=== PATIENT | male | born 1965 | race Caucasian/White ===

== ENCOUNTER 2023-05-11 07:21 | Emergency (ER) | payer OTHER, SELFPAY ==
[2023-05-11 07:31] VITALS: BP 131/77
[2023-05-11 07:55] VITALS: BP 126/82
[2023-05-11 07:59] VITALS: BMI 27.2
[2023-05-11 08:00] VITALS: BP 113/77
--- NOTE | 2023-05-11 08:17 | ED.GENMED ---
History of Present Illness
General
Chief Complaint: Chest Pain
Source: patient and spouse
Exam Limitations: none
Time Seen by Provider: 05/11/23 08:05
Nursing documentation reviewed up to this point in time: agreed with
Travel History
Have you had any contact with someone who has COVID-19?: No
Do you have any symptoms of coronavirus? Fever > 100 degrees, chills, cough, shortness of breath, sore throat, loss of taste or smell, muscle aches, or headache?: No
History of Present Illness
History of Present Illness:
58-year-old male presents to the emergency department complaining of chest pain that started yesterday afternoon. He describes his left shoulder. He took a baby aspirin this morning and now denies any symptoms.
Past History
Past History
ED Past Medical History: Arrthythmia (a fib s/p ablation) and Other (Schatzki's ring, osteoarthritis, BPH)
ED Past Surgical History: Cardiac (ablation) and Other (Hernia repair, esophageal dilatation)
Social History
Tobacco: Non-smoker
Alcohol: Occasional
Drug: None
Personal:
Living: with family
Employment: Employed
Family History
Family History: Hypertension
Review of Systems
Review of Systems
Allergies reviewed?: Yes
All Other Systems: Not applicable
Constitutional: Reports no symptoms
EENT: Reports no symptoms
Respiratory: Reports no symptoms
Cardiac: Reports chest pain
ABD/GI: Reports no symptoms
: Reports no symptoms
Musculoskeletal: Reports no symptoms
Skin: Reports no symptoms
Neurological: Reports no symptoms
Endocrine: Reports no symptoms
Hematologic/Lymphatic: Reports no symptoms
Psychiatric: Reports no symptoms
Phy Exam
Physical Exam
Physical Exam:
Physical Exam
General: no apparent distress, not acutely ill
Neck: supple. no meningeal signs. normal posterior pharynx
Heart: s1/s2 regular rate and rhythm, no murmur. equal radial
pulses.
HEENT: Pupils equal round reactive to light, EOMI
Lungs: no acute respiratory distress. clear bilaterally
Abdomen: normal bowel sounds. not tender. no CVAT
Neuro: alert and oriented. no focal neurological deficits cranial nerves II through XII intact
Skin: no rash
Psychiatric: well kept. interactive and cooperative
Extremities: no edema. no calf tenderness. negative homans. good distal pulses
Scores
Heart Score for Chest Pain Patients
STEMI patient?: No
History: Slightly or Non-Suspicious
ECG: Normal
Age: >45 - <65 years
Risk Factors: 1 or 2 Risk Factors
Troponin: </= Normal Limit
Heart Score for Chest Pain Patients: 2
Heart Score Risk: 2.5% MACE over next 6 weeks
Course
Orders/Labs/Results
Orders:
Orders
05/11/23 07:22
ECG [Electrocardiogram (*1)] Urgent
Reason for Study: Chest Pain
EKG- Treatment ONCE
05/11/23 08:06
IV Insert/Care/Rem.- Treatment PRN
Pulse Ox/cont/shift [RESP] Stat
Quantity: 1
05/11/23 08:07
Cardiac Monitoring- Treatment ONCE
05/11/23 08:14
Complete Blood Count/With Diff Urgent
Comprehensive Metabolic Panel Urgent
Troponin I Urgent
Abnormal Lab Results
05/11/23
08:14
RBC 4.50 L 10^6/uL
(4.70-6.10)
MCH 32.7 H pg
(27.0-31.0)
Glucose 149 H mg/dl
(70-99)
Alkaline Phosphatase 34 L U/L
(38-126)
Total Protein 6.2 L g/dl
(6.3-8.2)
05/11/23 08:14
05/11/23 08:14
Vital Signs
Initial and Last Documented VS:
Initial Vital Signs
Pulse Resp BP Pulse Ox
62 18 131/77 99
05/11/23 07:31 05/11/23 07:31 05/11/23 07:31 05/11/23 07:31
Last Documented Vital Signs
Pulse Resp BP Pulse Ox
58 14 108/73 95
05/11/23 10:00 05/11/23 10:00 05/11/23 10:00 05/11/23 10:00
MDM/Problems Addressed
Differential Diagnosis Includes:
ACS, PE
MDM/Problems Addressed:
58-year-old male with chest pain, unclear etiology. Normal EKG and troponin. Will discharge patient to follow-up with cardiology.
Chronic conditions affecting care: Arrhythmia (Atrial fibrillation)
Acute Exacerbation and/or Progression of Chronic Illness: Arrhythmia
*Pulse Oximetry
Patient hypoxic: no
*EKG
Interpreted by ED Provider?: Yes
EKG Intrepretation Date: 05/11/23
EKG Intrepretation Time: 07:28
Interpretation: abnormal
Comparison EKG: no changes
Heart Rate: 57
Rate: bradycardiac
Rhythm: sinus
[place]: left axis deviation
Interval: normal interval
QRS Pattern: normal QRS
Ischemia: no ischemia
*Graphotype Operator Interpretation
Rate: normal
Interpretation: normal
Heart Rate: 60
Rhythm: sinus
*Critical Care Note
Total Time (30-74mins, 75-104mins- exclusive of procedures): Not Applicable
Data Reviewed
Further Testing Considered But Not Given:
CT chest considered, but not indicated
Patient Management
Social determinants of health affecting care: Living situation and Strong social support
Escalation/DeEscalation of care consider admission/obs:
Admit not indicated
ED Attending Note
-
Portions of this chart may have been created with voice recognition software.� Occasional wrong word or��sound alike� substitutions may have occurred due to the inherent limitations of voice recognition software.
Discharge Plan
Departure
Patient Disposition: Home (Routine Discharge)
Date of Disposition: 05/11/23
Time of Disposition: 10:59
Patient with high blood pressure during this ER visit?: Yes
Condition: Good
Discharge Problem:
Chest pain
Instructions: Chest Pain DCA Follow Up, BLOOD PRESSURE
Prescriptions:
No Action
diazepam 5 MG tablet
5 mg PO TIDPRN PRN (Reason: back pain ) Qty: 12 0RF
pantoprazole [Protonix] 40 mg tablet,delayed release (DR/EC)
40 mg PO DAILY Qty: 20 0RF
Referrals:
Carlos Bailon DO [Family Provider] -
Interventions
Interventions:
*Risk Screen - Suicide Last Done: 05/11/23 07:31
*General Assessment Last Done: 05/11/23 07:31
*Neglect/Abuse Screening Last Done: 05/11/23 07:31
ED- Fall Risk Assessment Last Done: 05/11/23 07:59
*ED COVID-19 Vaccine History Last Done: 05/11/23 07:59
ED- Cardiac Assessment Last Done: 05/11/23 07:59
[2023-05-11 08:32] LABS: % Basophils 0.6 % (0-2); % Eosinophils 2.2 % (0-6); % Immature Granulocytes 0.2 % (0-0.5); % Monocytes 7.6 % (1.7-9.3); % Neutrophils 66.4 % (42.2-75.2); Absolute Eosinophils 0.1 10^3/uL (0-0.7); Absolute Lymphocytes 1.2 10^3/uL (1.2-3.4); Absolute Monocytes 0.4 10^3/uL (0.1-0.6); Absolute Neutrophils 3.3 10^3/uL (1.4-6.5); Hematocrit 41.4 % (39.0-52.0); Hemoglobin 14.7 g/dL (13.0-18.0); Mean Corp Hgb Conc. 35.5 g/dL (33.0-37.0); Mean Corpuscular Hgb 32.7 pg (27.0-31.0); Nucleated Red Blood Cells % 0 % (-); Platelet Count 202 10^3/uL (130-400); Red Cell Dist. Width 12.6 % (11.5-14.5)
[2023-05-11 08:40] LABS: ALT (SGPT) 31 U/L (0-50); AST (SGOT) 30 U/L (17-59); Albumin 3.9 g/dl (3.5-5.0); Alkaline Phosphatase 34 U/L (38-126); Blood Urea Nitrogen 12 mg/dl (9-20); Calcium 9.4 mg/dl (8.4-10.2); Carbon Dioxide 25 mmol/L (22-30); Chloride 107 mmol/L (98-107); Estimated Creatinine Clearance 109 ml/min; Glucose 149 mg/dl (70-99); Potassium 3.9 mmol/L (3.5-5.1); Sodium 139 mmol/L (135-145); Total Bilirubin 0.8 mg/dl (0.2-1.3); Total Protein 6.2 g/dl (6.3-8.2); eGFR > 60.00
[2023-05-11 08:52] LABS: Troponin I < 0.012 ng/ml
[2023-05-11 09:00] VITALS: BP 111/74
[2023-05-11 10:00] VITALS: BP 108/73
[2023-05-11 11:00] VITALS: BP 118/74
== END 2023-05-11 11:12 | disposition home or self-care (01) ==
LOC: EMR 07:21
PROVIDERS: EMERGENCY PHYSICIAN Emergency Medicine; FAMILY PHYSICIAN Family Medicine
DX: R07.89 Other chest pain (principal); I48.91 Unspecified atrial fibrillation; K22.2 Esophageal obstruction; M19.90 Unspecified osteoarthritis, unspecified site; N40.0 Benign prostatic hyperplasia without lower urinary tract symptoms; Z82.49 Family history of ischemic heart disease and other diseases of the circulatory system
CPT/HCPCS: 99283; 80053; 84484; 85025; 93005

== ENCOUNTER → 2023-05-12 13:46 | Outpatient (REF) | payer OTHER, SELFPAY | LOC: RAD 13:46 | PROVIDERS: ATTENDING PHYSICIAN Physician Assistant Medical; FAMILY PHYSICIAN Family Medicine | DX: K21.9 Gastro-esophageal reflux disease without esophagitis (principal); R07.2 Precordial pain | CPT/HCPCS: 71046 ==

== ENCOUNTER → 2023-07-09 06:36 | Day surgery (SDC) | payer OTHER, SELFPAY | LOC: GI 06:36 | PROVIDERS: ATTENDING PHYSICIAN Internal Medicine Gastroenterology; FAMILY PHYSICIAN Family Medicine | DX: R10.13 Epigastric pain (principal); K22.2 Esophageal obstruction; R13.10 Dysphagia, unspecified; K31.89 Other diseases of stomach and duodenum | CPT/HCPCS: 43249; 43239; 88305; 88342 ==

== ENCOUNTER 2024-02-09 20:59 | Observation (INO) | payer OTHER, SELFPAY ==
[2024-02-09] VITALS (8 sets, daily range): BP systolic 110–133; BP diastolic 71–89; BMI 27.5
[2024-02-09 15:57] LABS: % Basophils 0.3 % (0-2); % Eosinophils 2.2 % (0-6); % Immature Granulocytes 0.5 % (0-0.5); % Lymphocytes 14.4 % (20.5-51.1); % Monocytes 7.3 % (1.7-9.3); % Neutrophils 75.3 % (42.2-75.2); Absolute Eosinophils 0.1 10^3/uL (0-0.7); Absolute Lymphocytes 0.9 10^3/uL (1.2-3.4); Absolute Monocytes 0.5 10^3/uL (0.1-0.6); Absolute Neutrophils 4.8 10^3/uL (1.4-6.5); Hematocrit 39.4 % (39.0-52.0); Hemoglobin 13.2 g/dL (13.0-18.0); Mean Corp Hgb Conc. 33.5 g/dL (33.0-37.0); Mean Corpuscular Hgb 31.9 pg (27.0-31.0); Mean Corpuscular Volume 95.2 fL (80.0-94.0); Mean Platelet Volume 9.5 fL (7.4-10.4); Nucleated Red Blood Cells % 0 % (-); Platelet Count 316 10^3/uL (130-400); Red Blood Cell Count 4.14 10^6/uL (4.70-6.10); Red Cell Dist. Width 12.1 % (11.5-14.5); White Blood Cell Count 6.3 10^3/uL (4.8-10.8)
[2024-02-09 16:16] LABS: ALT (SGPT) 23 U/L (0-50); AST (SGOT) 22 U/L (17-59); Albumin 3.8 g/dl (3.5-5.0); Alkaline Phosphatase 32 U/L (38-126); Blood Urea Nitrogen 14 mg/dl (9-20); Calcium 9.1 mg/dl (8.4-10.2); Carbon Dioxide 24 mmol/L (22-30); Chloride 101 mmol/L (98-107); Glucose 102 mg/dl (70-99); Potassium 4.3 mmol/L (3.5-5.1); Sodium 135 mmol/L (135-145); Total Bilirubin 1.3 mg/dl (0.2-1.3); Total Protein 6.4 g/dl (6.3-8.2); eGFR > 60.00
[2024-02-09 16:23] LABS: APTT 34.2 Sec (23.4-35.0); INR 0.96; PT 13.3 Sec (11.4-14.6)
--- NOTE | 2024-02-09 18:45 | ED.GENMED ---
History of Present Illness
<Edita Jensen MD, Resident - Last Filed: 02/09/24 21:55>
General
Chief Complaint: Abdominal Symptoms
Time Seen by Provider: 02/09/24 18:15
History of Present Illness
History of Present Illness:
58-year-old male with past medical history of Schatzki's ring, GERD, Afib status post ablation, BPH presenting to the ED with vomiting and dark stools. Patient notes he had a right knee replacement about 2 weeks ago. Patient reports having URI
symptoms and had an appointment with his PCP who prescribed cefdinir. Last night at 10 PM patient took cefdinir, oxycodone, tadalafil, finasteride, senna at the same time. After taking these pills, felt nauseous and had 3 episodes of vomiting.
Patient states he noticed bright red blood in his vomit. Patient notes he had clear loose stools last night. Since this morning, he has had dark stools (black) x 4. Patient was told by his GI physician to come to the ED. Also notes taking Pepto last
night after his symptoms started. Patient notes epigastric pain last night, denies any abdominal pain at this time. Patient notes he had breakfast this morning and is not feeling hungry which is unusual for him. Denies fever, lightheadedness, SOB.
Patient takes ASA 325 after his knee surgery, did not take today.
Past History
<Edita Jensen MD, Resident - Last Filed: 02/09/24 21:55>
Past History
ED Past Medical History: Arrthythmia (a fib s/p ablation), GERD and Other (Schatzki's ring, osteoarthritis, BPH)
ED Past Surgical History: Cardiac (ablation) and Other (Hernia repair, esophageal dilatation)
Social History
Tobacco: Non-smoker
Alcohol: Occasional
Drug: None
Personal:
Living: with family
Employment: Employed
Family History
Family History: Hypertension
Review of Systems
<Edita Jensen MD, Resident - Last Filed: 02/09/24 21:55>
Review of Systems
Constitutional: Reports sleep disturbance
EENT: Reports no symptoms
Respiratory: Reports cough
Cardiac: Reports no symptoms
ABD/GI: Reports nausea, vomiting and black stools
: Reports no symptoms
Musculoskeletal: Reports no symptoms
Skin: Reports no symptoms
Neurological: Reports no symptoms
Endocrine: Reports no symptoms
Hematologic/Lymphatic: Reports no symptoms
Psychiatric: Reports no symptoms
Phy Exam
<Edita Jensen MD, Resident - Last Filed: 02/09/24 21:55>
Physical Exam
Physical Exam:
GENERAL: Alert, awake, in no apparent distress.
EYE: pupils equal and reactive
NECK: Supple, no significant adenopathy.
ENT: o/p clr, mmm.
CARDIAC: Regular rate and rhythm.
LUNGS: Clear breath sounds bilaterally, no acute respiratory distress, no wheezes/rales/rhonchi
ABDOMEN: Soft, mild epigastric tenderness, no r/g, no cvat. Rectal exam black stool.
NEUROLOGICAL: Alert and oriented, no focal neuro deficits.
SKIN: Warm and dry, skin intact.
MUSCULOSKELETAL: No edema, well perfused.
PSYCH: Normal and appropriate interaction.
Course
<Edita Jensen MD, Resident - Last Filed: 02/09/24 21:55>
Orders/Labs/Results
Orders:
Orders
02/09/24 15:41
Type+Screen Urgent
Complete Blood Count/With Diff Urgent
Comprehensive Metabolic Panel Urgent
PTT Urgent
Prothrombin Time Urgent
02/09/24 18:49
MethylPREDNISolone. [Solu-Medrol] 1,000 mg 0.9% Sodium Chloride 250 ml [Nss] 250 ml IV ONCE
02/09/24 19:15
Pantoprazole [Protonix IV] 80 mg IV NOW STA
02/09/24 19:29
Pantoprazole 80 mg/100 ml Nss [Protonix] 80 mg in 100 ml IV NOW
CR Chest - 2 Views Urgent
Comment:
Reason For Exam: cough
02/09/24 20:29
Admit/Transfer Patient As Directed
Co-Sign Provider:
Level of Care: Observation services
Assign to:: Medical/Surgical
Physician / Group: Mely Granda
Diagnosis: GI Bleed
Reason for Hospitalization: GI Bleed
PRN Pain Medication Management As Directed
May give lesser potent ordered pain med per pt: Yes
preference::
Protocol:: Medication orders for pain may be administered in a
manner that supports deferring to patient preference
when the pt is:
- Requesting an ordered lesser potent pain medication.
Least to most potent pain medications are defined
as: acetaminophen < NSAID < tramadol < opioids
(morphine, oxycodone, hydromorphone).
- Requesting a lesser dose of the same medication IF
ORDERED.
- Requesting a less intrusive route of administration
if both routes are prescribed by the provider (PO <
IV).
02/09/24 20:31
Code Status As Directed
Resuscitation Status: Full Code
02/09/24 21:03
COVID-19 Antigen Urgent
Source: Nasal Swab
Influenza A+B Rapid Molecular Urgent
ROSANGELA Source: Nasal Swab
Specimen Description:
Abnormal Lab Results
02/09/24
15:41
RBC 4.14 L 10^6/uL
(4.70-6.10)
MCV 95.2 H fL
(80.0-94.0)
MCH 31.9 H pg
(27.0-31.0)
Absolute Lymphs (auto) 0.9 L 10^3/uL
(1.2-3.4)
Neutrophils % 75.3 H %
(42.2-75.2)
Lymphocytes % 14.4 L %
(20.5-51.1)
Glucose 102 H mg/dl
(70-99)
Alkaline Phosphatase 32 L U/L
(38-126)
02/09/24 15:41
02/09/24 15:41
Vital Signs
Initial and Last Documented VS:
Initial Vital Signs
Temp Pulse Resp BP Pulse Ox
98.1 F 92 23 117/72 100
02/09/24 15:28 02/09/24 15:28 02/09/24 15:28 02/09/24 15:28 02/09/24 15:28
Last Documented Vital Signs
Temp Pulse Resp BP Pulse Ox
98.1 F 75 17 133/89 96
02/09/24 15:28 02/09/24 21:15 02/09/24 21:15 02/09/24 21:00 02/09/24 21:15
<Vicki Lawrence, DO - Last Filed: 02/09/24 19:46>
Orders/Labs/Results
Orders:
Orders
02/09/24 15:41
Type+Screen Urgent
Complete Blood Count/With Diff Urgent
Comprehensive Metabolic Panel Urgent
PTT Urgent
Prothrombin Time Urgent
02/09/24 18:49
MethylPREDNISolone. [Solu-Medrol] 1,000 mg 0.9% Sodium Chloride 250 ml [Nss] 250 ml IV ONCE
02/09/24 19:15
Pantoprazole [Protonix IV] 80 mg IV NOW STA
02/09/24 19:29
Pantoprazole 80 mg/100 ml Nss [Protonix] 80 mg in 100 ml IV NOW
CR Chest - 2 Views Urgent
Comment:
Reason For Exam: cough
02/09/24 20:29
Admit/Transfer Patient As Directed
Co-Sign Provider:
Level of Care: Observation services
Assign to:: Medical/Surgical
Physician / Group: Mely Granda
Diagnosis: GI Bleed
Reason for Hospitalization: GI Bleed
PRN Pain Medication Management As Directed
May give lesser potent ordered pain med per pt: Yes
preference::
Protocol:: Medication orders for pain may be administered in a
manner that supports deferring to patient preference
when the pt is:
- Requesting an ordered lesser potent pain medication.
Least to most potent pain medications are defined
as: acetaminophen < NSAID < tramadol < opioids
(morphine, oxycodone, hydromorphone).
- Requesting a lesser dose of the same medication IF
ORDERED.
- Requesting a less intrusive route of administration
if both routes are prescribed by the provider (PO <
IV).
02/09/24 20:31
Code Status As Directed
Resuscitation Status: Full Code
02/09/24 21:03
COVID-19 Antigen Urgent
Source: Nasal Swab
Influenza A+B Rapid Molecular Urgent
ROSANGELA Source: Nasal Swab
Specimen Description:
Abnormal Lab Results
02/09/24
15:41
RBC 4.14 L 10^6/uL
(4.70-6.10)
MCV 95.2 H fL
(80.0-94.0)
MCH 31.9 H pg
(27.0-31.0)
Absolute Lymphs (auto) 0.9 L 10^3/uL
(1.2-3.4)
Neutrophils % 75.3 H %
(42.2-75.2)
Lymphocytes % 14.4 L %
(20.5-51.1)
Glucose 102 H mg/dl
(70-99)
Alkaline Phosphatase 32 L U/L
(38-126)
02/09/24 15:41
02/09/24 15:41
Vital Signs
Initial and Last Documented VS:
Initial Vital Signs
Temp Pulse Resp BP Pulse Ox
98.1 F 92 23 117/72 100
02/09/24 15:28 02/09/24 15:28 02/09/24 15:28 02/09/24 15:28 02/09/24 15:28
Last Documented Vital Signs
Temp Pulse Resp BP Pulse Ox
98.1 F 75 17 133/89 96
02/09/24 15:28 02/09/24 21:15 02/09/24 21:15 02/09/24 21:00 02/09/24 21:15
<Edita Jensen MD, Resident - Last Filed: 02/09/24 21:55>
MDM/Problems Addressed
Differential Diagnosis Includes:
Upper GI bleeding
MDM/Problems Addressed:
- CBC, CMP
- Type and Screen
- Protonix
- PTT, INR
<Edita Jensen MD, Resident - Last Filed: 02/09/24 21:55>
*Critical Care Note
Total Time (30-74mins, 75-104mins- exclusive of procedures): Not Applicable
ED Attending Note
<Edita Jensen MD, Resident - Last Filed: 02/09/24 21:55>
-
Portions of this chart may have been created with voice recognition software.� Occasional wrong word or��sound alike� substitutions may have occurred due to the inherent limitations of voice recognition software.
<Vicki Lawrence DO - Last Filed: 02/09/24 19:46>
ED Attending Note
Patient seen and examined by attending physician: Yes
I performed the substantive portion of visit, reviewed & personally made and approve the management plan that is documented in note by myself or ANGELICA.: Yes
I performed a history and physical exam of patient and discussed management with resident, I reviewed resident's note and agree with documented findings and plan of care.: Yes
ED Attending Note:
58-year-old male with history of GERD, Schatzki's ring, A-fib not currently on any anticoagulation presenting to the emergency department with concern of GI bleed. Patient reports about 6 weeks ago he had a right knee replacement by orthopedics.
He reports that there was some complication with bleeding, however has since resolved. He has been taking extra. He also notes that he has been taking Tylenol and ibuprofen. He reports a few days ago he started to have cough and upper respiratory
symptoms, called his primary care doctor and was prescribed cefdinir. Last evening he took his cefdinir, senna, oxycodone, finasteride, tadalafil and subsequently felt very nauseous, followed by 3 episodes of vomiting, reports blood in his vomit,
bright red. Does report social history of alcohol, however denies daily alcohol abuse. Following the vomiting, had several episodes of diarrhea, reportedly black in color. Denies any history of GI bleed. Reports the diarrhea is ongoing, however
has had no further episodes of vomiting since last evening. Denies abdominal pain.
On exam, patient is resting comfortably, no acute distress. He is afebrile, nontoxic. Unremarkable cardiac, pulmonary, abdominal exam, no tenderness. On examination of the right knee, incision appears clean/dry/intact, no significant swelling
erythema to the knee joint. No significant warmth to palpation. Rectal exam performed by resident physician, noted to be melanotic stool, Hemoccult positive. This time concern for upper GI bleed, possibly related to bleeding ulcer in the setting
of ibuprofen usage. Patient laboratory analysis obtained, normal hemoglobin, remains medically stable. However, given persistence of symptoms, feel warrants observation admission for GI consultation and hemodynamic monitoring.
Discharge Plan
Departure
Patient Disposition: Admit
Date of Disposition: 02/09/24
Time of Disposition: 19:31
Admit to doctor: William
Presentation/result/management discussed w/ accepting MD/DO: Hospitalist
Patient with high blood pressure during this ER visit?: No
Condition: Good
Discharge Problem:
GI bleeding
Interventions
Interventions:
*Risk Screen - Suicide Last Done: 02/09/24 15:28
*General Assessment Last Done: 02/09/24 15:28
*Neglect/Abuse Screening Last Done: 02/09/24 15:28
*ED COVID-19 Vaccine History Last Done: 02/09/24 19:28
PT-Vbmyac-Illxkfgzsm Assessment Last Done: 02/09/24 18:00
[2024-02-09] MEDS: PROTONIX IV 80 MG IV (19:25)
--- NOTE | 2024-02-09 19:43 | HPS.HSE ---
Family Physician
-
Family Physician: Carlos Bailon
Chief Complaint
-
nausea/vomiting
History of Present Illness
Patient is a 58-year-old male with past medical history significant for Schatzki's ring dilated 3 times, paroxysmal atrial fibrillation with ablation and benign prostatic hyperplasia who presented to [facility] ED for evaluation of multiple episodes
of nausea and vomiting with diarrhea in last 24-hours. Patient states 2 weeks ago he had a right total knee and shortly after had symptoms or URI, where his doctor prescribed cefdinir. Patient took second dose of cefdinir with oxycodone, tadalafil,
finasteride and senna after eating dinner, a short time later he had sensation that he was going to have an episode of the runs, which turned out to be emesis that is described as having bright red in it. Patient states that he then had
approximately 5 episodes of diarrhea and then a small bowel movement of small formed black stool. Patient states for dinner he ate Gisele, green beans then a large bowl of cherries. Patient states he has had recent fevers on and off for 5 days,
cough and some shortness of breath. He denies any chest pain, palpitations, constipation or urinary symptoms.
Medical History
Past Medical History
Past Medical History: Reports Other
Additional Past Medical History:
Schatzki's ring dilated 3 times
paroxysmal atrial fibrillation with ablation (2017)
benign prostatic hyperplasia
Past Surgical History: Reports Other
Additional Past Surgical History:
bilateral total knee
hernia repair
cardiac ablation (2017)
Social History
Tobacco: Former Smoker (16 pack year history)
Alcohol: None
Drug: None
Personal:
Living: With Family
Employment: Employed
Family History
Family History: Not pertinent
Allergies / Home Medications
Allergies reflects when Allergies were last updated in [facility].
Home Medications with original date entered in [facility]
Allergy/Medication List:
Allergies
Allergy/AdvReac Type Severity Reaction Status Date / Time
rivaroxaban [From Xarelto] Allergy Rash Verified 05/11/23 07:31
Home Medications
pantoprazole 40 mg tablet,delayed release (Protonix) 40 mg PO DAILY #20 tabs 08/03/22
alprazolam 0.5 mg tablet (Xanax) 0.75 mg PO HS 02/09/24
aspirin 325 mg tablet 325 mg PO DAILY 02/09/24
cefdinir 300 mg capsule 300 mg PO BID 02/09/24
doxazosin 4 mg tablet 4 mg PO HS 02/09/24
finasteride 5 mg tablet 5 mg PO HS 02/09/24
oxycodone 5 mg tablet 5 mg PO Q4H 02/09/24
sennosides 8.6 mg tablet (senna) 17.2 mg PO HS 02/09/24
tadalafil 5 mg tablet 5 mg PO HS 02/09/24
testosterone 2 pump topical DAILY 02/09/24
therapeutic multivitamin 1 tab PO DAILY 02/09/24
tobramycin-dexamethasone 0.3 %-0.1 % eye ointment (TobraDex) 1 applic ophthalmic (eye) BIDPRN PRN eczema around eye 02/09/24
Review of Systems
-
History Source: Patient
Constitutional: Reports Fever
EENT: Reports No Symptoms
Respiratory: Reports No Symptoms
Cardiac: Reports No Symptoms
Abdomen/GI: Reports Nausea, Vomiting, Diarrhea and Black Stools
: Reports No Symptoms
Musculoskeletal: Reports No Symptoms
Skin: Reports No Symptoms
Neurological: Reports No Symptoms
Endocrine: Reports No Symptoms
Hematologic/Lymphatic: Reports No Symptoms
Psych: Reports No Symptoms
Physical Exam
Vital Signs
Vital Signs
Temp Pulse Resp BP Pulse Ox
98.1 F 84 18 118/72 97
02/09/24 15:28 02/09/24 18:30 02/09/24 18:30 02/09/24 18:00 02/09/24 18:30
Physical Exam
General: Well Developed, Well Nourished, No Apparent Distress, Comfortable and Conversant
HEENT: NormoCephalic, Moist mucous membranes, Atraumatic, PERRLA, [place] Conjunctivae, Nose Appears Normal and Ears Appear Normal
Respiratory: Clear and Non Labored Respirations
Cardiac: S1/S2 and Regular Rhythm; No Murmur, Rub or Gallop
Breast: Deferred by me
GI: Soft, Non Tender, Non Distended and Normal Bowel Sounds; No Organomegaly
Rectal: Hem Positive
Genito-urinary: Deferred by me
Musculoskeletal: No Clubbing, No Cyanosis and No Edema
Skin: Warm and IV/Catheter Site; No Rash
Neuro: Awake, Alert, AO x 3 and Nonfocal/grossly intact
Hematologic/Lymphatic: No Lymphadenopathy
Psych: Calm and Intact Judgment/Insight
Laboratory Results
-
02/09/24 15:41
02/09/24 15:41
Laboratory Results
PT 13.3 Sec (11.4-14.6) 02/09/24 15:41
INR 0.96 02/09/24 15:41
APTT 34.2 Sec (23.4-35.0) 02/09/24 15:41
Total Bilirubin 1.3 mg/dl (0.2-1.3) 02/09/24 15:41
AST 22 U/L (17-59) 02/09/24 15:41
ALT 23 U/L (0-50) 02/09/24 15:41
Alkaline Phosphatase 32 U/L (38-126) L 02/09/24 15:41
Data Reviewed
-
Lab Data: Labs Reviewed by me (Hgb 13.2, Hct 39.4)
Impression/Plan
-
IMPRESSION/PLAN:
#GI bleed
Hgb 13.2/Hct 39.4
Patient describes multiple episodes of emesis with bright red blood and multiple bowel movements with black stool
- Admit to med/surg
- Monitor H/H
- consult GI
- Clear liquids
- hold aspirin
- Protonix IV BID
#URI
recent treatment with cefdinir
- chest x-ray pending
- covid and influenza pending
#benign prostatic hyperplasia
- continue doxazosin, finasteride and tadalafil
#paroxysmal atrial fibrillation with ablation
no episodes of atrial fibrillation post ablation in 2017
#Schatzki's ring dilated 3 times
Code Status: Full Code
DVT Prophylaxis: SCDs
[2024-02-09] MEDS: PROTONIX 100 IV (19:45)
--- NOTE | 2024-02-09 20:00 | W.PN.UPDATE ---
Update Note
Progress Note Update
This is an addendum to H&P written by CLASSIFIED ADVERTISING CLERK Rashmi Garnett
I saw and examined the patient.
The CLASSIFIED ADVERTISING CLERK's note was reviewed and I agree with the note.
Comment:
Mr. Sriram Allen is a 58 yo man with hx atrial fibrillation s/p ablation, GERD, Schatzki's ring, BPH, right knee replacement 2 weeks ago presents to the ER with vomiting and dark stools. Patient was prescribed Aspirin 325mg PO QD post surgery
which he has been taking. He was prescribed Cefdinir yesterday for report of chest congestion and fever. Last evening patient took many pills at once including Cefdinir and then felt nauseated and vomited 3 times. He noticed bright red blood in
vomit. He reports eating a bowl of cherries prior to episode. Last night he had watery diarrhea and this morning stools were black. He reports taking pepto bismol yesterday evening.
Triage VS: T 98.1, P 92, RR 23, BP 117/72, SpO2 100%
LABS: WBC 6.3, Hg 13.2, PLT 316, Na 135, K+ 4.3, Cl 101, CO2 24, BUN 14, Cr 0.8, Glucose 102, Ca 9.1, T. Bili 1.3, AST 22, ALT 23
MAR: IV Protonix gtt
Hemoccult positive stool
Report of bright red vomit and dark stools. Possible that bright red emesis explained by recently eating bowl of cherries and black stools explained by pepto-bismol. However patient does have risk factor for UGIB with recent aspirin use. Will
therefore admit to observation, trend Hg and consult GI to help decide if patient warrants scope.
-admit to telemetry
-continue IV Protonix gtt; OK to change to BID protonix once gtt runs out
-GI consult
-clears, NPO after MN
Recent right knee replacement
-hold [employer]BER aspirin for now given possible UGIB
Bronchitis
-check flu, covid
-check CXR
-hold antibiotics for now unless CXR shows e/o PNA
DVT PPx SCD
FULL CODE
[2024-02-09 21:32] LABS: COVID-19 Antigen Negative (Negative)
[2024-02-09 23:38] LABS: Hematocrit 33.5 % (39.0-52.0); Hemoglobin 11.4 g/dL (13.0-18.0)
[2024-02-10] VITALS (9 sets, daily range): BP systolic 17–118; BP diastolic 62–73
[2024-02-10] MEDS: SENOKOT 17.2 MG PO (00:20)
[2024-02-10] MEDS: PROSCAR 5 MG PO (00:20)
[2024-02-10] MEDS: XANAX 0.75 MG PO (00:20)
[2024-02-10] MEDS: CARDURA 4 MG PO (00:20)
[2024-02-10] MEDS: ROXICODONE 5 MG PO (00:35)
--- NOTE | 2024-02-10 03:39 | DOWNTIME ---
There was a [employer] Client [employer] Downtime on 02/10/2024 from 0200 to 02/10/2024 at 0325 . Downtime documentation of patient's care, including medication administrations, has been reconciled in the electronic record per guidelines. Refer to the
patient's paper chart under the miscellaneous tab to see printed paper medication records and downtime forms.
[2024-02-10 04:37] LABS: Hematocrit 36.2 % (39.0-52.0); Hemoglobin 12.2 g/dL (13.0-18.0); Mean Corp Hgb Conc. 33.7 g/dL (33.0-37.0); Mean Corpuscular Hgb 32.3 pg (27.0-31.0); Mean Corpuscular Volume 95.8 fL (80.0-94.0); Mean Platelet Volume 9.3 fL (7.4-10.4); Platelet Count 272 10^3/uL (130-400); Red Blood Cell Count 3.78 10^6/uL (4.70-6.10)
[2024-02-10 05:04] LABS: Blood Urea Nitrogen 12 mg/dl (9-20); Calcium 8.7 mg/dl (8.4-10.2); Carbon Dioxide 25 mmol/L (22-30); Chloride 105 mmol/L (98-107); Estimated Creatinine Clearance 98 ml/min; Glucose 103 mg/dl (70-99); Sodium 136 mmol/L (135-145); eGFR > 60.00
--- NOTE | 2024-02-10 08:59 | CON.GI ---
Addendum entered and electronically signed by Laura Alberts MD 02/10/24 11:00:
I saw and examined the patient.
The SIGNAL WORKER's note was reviewed and I agree with the note.
Comment: This is a 58-year-old male with past medical history A-fib status post ablation not on AC, Schatzki's ring status post dilatation in the past sees Dr. Pineda, colon polyps, recent right TKR on 01/23 and has been on aspirin 325 mg since
then but has been taking his PPI with it he also took ibuprofen a few days ago who also recently was started on cefdinir for URI and he says that he started having nausea vomiting and diarrhea yesterday after taking his second pill of the antibiotic
and noticed some coffee-ground emesis with minimal hematemesis and also 1 episode of dark stool which prompted him to come into the emergency room. His hemoglobin is relatively stable and his BUN is also normal. He also has been constipated and
has been on oxycodone.
Assessment and plan small episode of melena and hematemesis and had also been having symptoms of nausea vomiting diarrhea prior to that with recent use of aspirin and NSAIDs most likely has PUD/esophagitis or gastritis. Symptoms of nausea vomiting
diarrhea could also be related to probable viral gastroenteritis or from antibiotics seems to have started after he started cefdinir. Will schedule him for an endoscopy today continue PPI twice daily for now he had been on daily prior to admission.
If he does have further episodes of diarrhea will also check for norovirus and stool cultures and C. difficile. Hold laxatives for now but once the diarrhea resolves if he needs to continue on opiates will need to restart laxatives then
Original Note:
Consultation
-
Date/Time Consultation Requested: 02/09/242229
Date/Time Consultation Performed: 02/10/24 0845
Requesting Provider: SARAH James
Performing Provider: SARAH Bronson, Laura alberts MD
Reason for Consultation: GI bleed
Medical History
Chief Complaint / HPI
History of Present Illness:
Pt is a 58yo with hx Afib with prior ablation not on current anticoagulation, GERD, Schatzki's ring with prior dilation, BPH, colon polyps, hemorrhoid with prior hemorrhoidal surgery, renal cyst with recent right TKR on 01/23. Pt admits to post -op
taking ASA daily along with Oxycodone and chronic PPI use. He also took Ibuprofen for a few days as unable sleep and intolerant of Tylenol. He also admits to cold likely symptoms and started course of Cefdinir He began Wednesday PM with vomiting red
emesis with also noted red senna pill but large volume noted then just medication. He then had several episode of explosive diarrhea followed by black stools and present for evaluation. On admission hbg 13.2 with some drop in 11.4 after admission
with normal BUN. Pt also admits to dizziness with symptoms.
He otherwise admits to some abdominal pain improved with initial vomiting and post-op constipation but taking laxative therapy. He denies dysphagia, or odynophagia. He follows with Dr. Pineda. Last EGD 06/2023 with nrmal esophagus, widely
patent non obst mild Schatzki's ring dilated, normal stomach and duodenum bx ng for EOE, Hpylori
Past Medical History
Past Medical History: Arrhythmias (PAF not on AC), GERD and Other (Schatzki's ring with dilation, colon polyps, hemorrhoids, concussion, arthritis, BPH, complex renal cyst, hypogonadism )
Past Surgical History: Cardiac (ablation), Orthopedic (multiple orthopedics surgery with recent right TKR 01/24/24, ACL tear, elbow surgery, left knee trauma with repair) and Other (hernia repair)
Social History
Tobacco: Non-Smoker
Alcohol: Occasional
Drug: None
Personal:
Living: With Family
Employment: Disabled
Family History
Family History: Other (per OP chart sister oral CA, father hx cardiac and CA, mother 36 cardiac)
Allergies / Home Medications
Allergy/AdvReac Type Severity Reaction Status Date / Time
rivaroxaban [From Xarelto] Allergy Rash Verified 05/11/23 07:31
�Medication �Instructions �Recorded
pantoprazole 40 mg tablet,delayed 40 mg PO DAILY #20 tabs 08/03/22
release (Protonix)
alprazolam 0.5 mg tablet (Xanax) 0.75 mg PO HS 02/09/24
aspirin 325 mg tablet 325 mg PO DAILY 02/09/24
cefdinir 300 mg capsule 300 mg PO BID 02/09/24
doxazosin 4 mg tablet 4 mg PO HS 02/09/24
finasteride 5 mg tablet 5 mg PO HS 02/09/24
oxycodone 5 mg tablet 5 mg PO Q4H 02/09/24
sennosides 8.6 mg tablet (senna) 17.2 mg PO HS 02/09/24
tadalafil 5 mg tablet 5 mg PO HS 02/09/24
testosterone 2 pump topical DAILY 02/09/24
therapeutic multivitamin 1 tab PO DAILY 02/09/24
tobramycin-dexamethasone 0.3 %-0.1 1 applic ophthalmic (eye) BIDPRN 02/09/24
% eye ointment (TobraDex) PRN eczema around eye
Review of Systems
-
History Source: Patient
Constitutional: Reports Fever (prior to admission )
EENT: Reports No Symptoms
Respiratory: Reports No Symptoms
Abdomen/GI: Reports Abdominal Pain, Nausea, Vomiting (red emesis ), Diarrhea, Constipated and Black Stools
: Reports No Symptoms
Musculoskeletal: Reports No Symptoms
Skin: Reports No Symptoms
Neurological: Reports Weakness
Endocrine: Reports No Symptoms
Hematologic/Lymphatic: Reports Bleeding
Vital Signs
Temp Pulse Resp BP Pulse Ox
98.5 F 92 20 117/70 97
02/10/24 07:01 02/10/24 07:01 02/10/24 07:01 02/10/24 07:01 02/10/24 07:01
Physical Exam
Exam
General: Well Developed, Well Nourished and No Apparent Distress
HEENT: Normocephalic and Anicteric
Respiratory: Clear and Wheezes
Cardiac: Regular Rhythm
GI: Soft, Non Distended and Tender
Rectal: Other (ER rectal black stools)
Musculoskeletal: No Clubbing, No Cyanosis and Other (right knee swelling post surgery with intact incision)
Skin: Warm and Dry
Neuro: Awake, Alert and AO x 3
Psych: Calm
Results
WBC 6.0 10^3/uL (4.8-10.8) 02/10/24 04:22
Hgb 12.2 g/dL (13.0-18.0) L 02/10/24 04:22
Hct 36.2 % (39.0-52.0) L 02/10/24 04:22
MCV 95.8 fL (80.0-94.0) H 02/10/24 04:22
Plt Count 272 10^3/uL (130-400) 02/10/24 04:22
Absolute Neuts (auto) 4.8 10^3/uL (1.4-6.5) 02/09/24 15:41
PT 13.3 Sec (11.4-14.6) 02/09/24 15:41
INR 0.96 02/09/24 15:41
APTT 34.2 Sec (23.4-35.0) 02/09/24 15:41
Sodium 136 mmol/L (135-145) 02/10/24 04:22
Potassium 4.0 mmol/L (3.5-5.1) 02/10/24 04:22
Chloride 105 mmol/L (98-107) 02/10/24 04:22
Carbon Dioxide 25 mmol/L (22-30) 02/10/24 04:22
BUN 12 mg/dl (9-20) 02/10/24 04:22
Creatinine 0.8 mg/dL (0.7-1.3) 02/10/24 04:22
Calcium 8.7 mg/dl (8.4-10.2) 02/10/24 04:22
Total Bilirubin 1.3 mg/dl (0.2-1.3) 02/09/24 15:41
AST 22 U/L (17-59) 02/09/24 15:41
ALT 23 U/L (0-50) 02/09/24 15:41
Alkaline Phosphatase 32 U/L (38-126) L 02/09/24 15:41
Diagnostic Image Results:
Prior GI Procedures:
EGD: 06/2023 [facility] - Normal esophagus.
- Widely patent, non-obstructing and mild Schatzki
ring. Dilated.
- Normal stomach. Biopsied.
- Normal examined duodenum. Biopsied.
- Biopsies were taken with a cold forceps for
evaluation of eosinophilic esophagitis.
bx neg EOE. hpylori
hx prior dilation 2012 and 2013
Colonoscopy: 04/2019 [facility]
- Two 3 to 4 mm polyps in the rectum and in the cecum.
Biopsied.
- Minimal diverticulosis in the sigmoid colon and in the
proximal ascending colon.
- The examined portion of the ileum was normal.
bx SSA colonic mucosa no specific pathologic change
Assessment / Plan
-
Pt is a 58yo with hx Afib with prior ablation not on current anticoagulation, GERD, Schatzki's ring with prior dilation, BPH, colon polyps, hemorrhoid with prior hemorrhoidal surgery, renal cyst with recent right TKR on 01/23. Pt admits to post -op
taking ASA daily along with Oxycodone and chronic PPI use. He also took Ibuprofen for a few days as unable sleep and intolerant of Tylenol. He also admits to cold likely symptoms and started course of Cefdinir He began Wednesday PM with vomiting red
emesis with also noted red senna pill but large volume noted then just medication. He then had several episode of explosive diarrhea followed by black stools and present for evaluation. On admission hbg 13.2 with some drop in 11.4 after admission
with normal BUN. Pt also admits to dizziness with symptoms.
-hematemesis
-melena
-recent NSAID use s/p TKR 01/23
-hx schatzki's ring with prior dilation
-post-op constipation
-recent cold symptoms with Cefdinir use
other med problems:
-afib with prior ablation- not on anticoagulation
-hemorrhoids with prior surgery
-multiple orthopedic surgeries
-hernia repair
-BPH
-colon polyps
-recent cyst
PLAN:
etiology of symptoms related to UGI Bleed with NSAID use but normal BUN, constipation with recent surgery but stool black and noted red emesis , vs medication intolerance vs other
trend hbg
for EGD today
cont PPI BID
NPO
cont laxative regiment
abx held for now
pt asking about discharge-- pending EGD results to determine timing of discharge
-
-
Thank you for consultation and allowing me to participate in the patient's care. Please call the supervisor irrigation GI physician during the after hours with any questions or concerns.
[2024-02-10] MEDS: PROTONIX IV 40 MG IV (09:47)
--- NOTE | 2024-02-10 12:40 | CM ---
CM reviewed chart. Patient is here for GI bleed. CM introduced self and role. CM explained the commercial [facility] form to patient. Patient verbalized understanding and signed the paper. Copy given to patient. Patient has an active PCP and pharmacy. He
is disabled. No +SDOHs. He lives at home with his . She will provide transportation once he is discharged. He drives, independent with ambulating, uses a cane.
ANTICIPATED DISCHARGE DISPO: Home with , when medically cleared.
--- NOTE | 2024-02-10 12:51 | W.PN.HOSP.TC ---
Today's Communication/Plan
-
Resume diet
Discharge
Assessment / Plan
Assessment / Plan
Gen-AAOx3, NAD
HEENT-NC, AT, anicteric, clear oral mm
Neck-supple
CV-reg, no M, +S1/S2
Lungs-clear B/L
Abd-soft, NT, ND
Ext-no edema
Musculoskeletal-no cyanosis, clubbing
Skin-warm and dry
Neuro-grossly non-focal
Psych-calm, cooperative
Acute GI bleed -presentation with hematemesis, melena. Hemodynamically stable. No further symptoms. Hemoglobin normal. Possible [place] tear.
EGD completed, esophagus was normal, few gastric polyps noted. Duodenum was normal. No specimens collected. GI service recommends Protonix 40 mg twice daily for 2 weeks then once daily thereafter. Colonoscopy in 6 to 8 weeks as an outpatient.
Avoid NSAIDs. Okay to discharge this afternoon if he tolerates diet.
Acute bronchitis -likely viral. Recommend discontinuing antibiotics. COVID and flu negative.
Recent right knee replacement -on aspirin daily for DVT prophylaxis. If melena persists would discontinue further aspirin and discuss with his orthopedist. Discussed with the patient.
History of paroxysmal atrial fibrillation -treated with ablation.
BPH
Full code
Dispo -stable for discharge this afternoon if he tolerates diet. Outpatient follow-up.
32 minutes spent in discharge process.
Anticipated Discharge: Today
Subjective/Interval History
-
Date of Service: February 10, 2024
Patient seen and examined. No complaints.
Objective Data
-
Labs:
Laboratory Results
02/10/24
04:22
WBC 6.0
Hgb 12.2 L
Hct 36.2 L
Plt Count 272
Sodium 136
Potassium 4.0
Chloride 105
Carbon Dioxide 25
BUN 12
Creatinine 0.8
Glucose 103 H
Calcium 8.7
Vital Signs:
Vital Signs
Temp Pulse Resp BP Pulse Ox
98.4 F 86 20 112/68 94
02/10/24 10:25 02/10/24 10:55 02/10/24 10:55 02/10/24 10:55 02/10/24 10:55
Review of Systems
-
History Source: Patient
All other systems: Reviewed and negative
--- NOTE | 2024-02-10 12:59 | W.DS.TRANS ---
DC Summary - [place]
-
Discharge Instructions:
Discharge Diagnosis/Procedures GI bleed
Diet Regular
Activity As tolerated
Driving Restrictions No driving for 24 hours
Bathing Restrictions None
Instructions:
Stand-Alone Forms:
Changes to Home Medications: No
Discharge Medications:
DC Medications w/original date entered in [employer]
alprazolam 0.5 mg tablet (Xanax) 0.75 mg PO HS anxiety 02/09/24
aspirin 325 mg tablet 325 mg PO DAILY Blood Clot Prevention/Tx 02/09/24
doxazosin 4 mg tablet 4 mg PO HS Urinary Issue/BP 02/09/24
finasteride 5 mg tablet 5 mg PO HS Urinary Issue 02/09/24
oxycodone 5 mg tablet 5 mg PO Q4H pain 02/09/24
sennosides 8.6 mg tablet (senna) 17.2 mg PO HS Constipation 02/09/24
tadalafil 5 mg tablet 5 mg PO HS Urinary Issue 02/09/24
testosterone 2 pump topical DAILY Hormonal Agent 02/09/24
therapeutic multivitamin 1 tab PO DAILY Supplement 02/09/24
tobramycin-dexamethasone 0.3 %-0.1 % eye ointment (TobraDex) 1 applic ophthalmic (eye) BIDPRN PRN eczema around eye 02/09/24
pantoprazole 40 mg tablet,delayed release (Protonix) 40 mg PO BID #60 tabs 02/10/24
Home Medication Changes
Pending Results: No
== END 2024-02-10 13:58 | disposition home or self-care (01) ==
LOC: ED 20:59
PROVIDERS: Nurse Practitioner Family; Physician Assistant; ADMITTING PHYSICIAN Student in an Organized Health Care Education/Training Program; ATTENDING PHYSICIAN Hospitalist; CONSULT PHYSICIAN Internal Medicine Gastroenterology; EMERGENCY PHYSICIAN Student in an Organized Health Care Education/Training Program; FAMILY PHYSICIAN Family Medicine
DX: K92.2 Gastrointestinal hemorrhage, unspecified (principal); R10.9 Unspecified abdominal pain; K22.2 Esophageal obstruction; K21.9 Gastro-esophageal reflux disease without esophagitis; I48.0 Paroxysmal atrial fibrillation; N40.0 Benign prostatic hyperplasia without lower urinary tract symptoms; K59.09 Other constipation; K31.7 Polyp of stomach and duodenum; J06.9 Acute upper respiratory infection, unspecified; K92.0 Hematemesis; B97.89 Other viral agents as the cause of diseases classified elsewhere; J20.8 Acute bronchitis due to other specified organisms; R19.7 Diarrhea, unspecified; Z96.651 Presence of right artificial knee joint; Z87.891 Personal history of nicotine dependence; Z79.890 Hormone replacement therapy; Z86.0100 Personal history of colon polyps, unspecified; Z87.19 Personal history of other diseases of the digestive system; Z79.82 Long term (current) use of aspirin; Z82.49 Family history of ischemic heart disease and other diseases of the circulatory system; Z11.52 Encounter for screening for COVID-19
CPT/HCPCS: 43235; 71046; 80048; 80053; 85014; 85018; 85025; 85027; 85610; 85730; 86850; 86900; 86901; 87502; 87811; 90686; 96374; 96375; 99284; G0008; G0378

== ENCOUNTER 2024-04-27 06:32 | Day surgery (SDC) | payer OTHER, SELFPAY | END 2024-04-27 11:00 | disposition home or self-care (01) | LOC: GI 06:32 | PROVIDERS: ATTENDING PHYSICIAN Internal Medicine Gastroenterology | DX: Z12.11 Encounter for screening for malignant neoplasm of colon (principal); K57.30 Diverticulosis of large intestine without perforation or abscess without bleeding; K64.0 First degree hemorrhoids; D12.0 Benign neoplasm of cecum; K63.5 Polyp of colon; Z86.0100 Personal history of colon polyps, unspecified | CPT/HCPCS: 45385; 45380; 88305 ==

== ENCOUNTER 2024-11-03 09:00 | Emergency (ER) | payer OTHER, SELFPAY ==
[2024-11-03 09:07] VITALS: BP 111/80
[2024-11-03 09:20] VITALS: BP 126/88
[2024-11-03] MEDS: LOW STRENGTH ASPIRIN 324 MG PO (09:45)
--- NOTE | 2024-11-03 09:45 | ED.GENMED ---
History of Present Illness
<Mike Glover MD - Last Filed: 11/05/24 10:53>
General
Chief Complaint: Chest Pain
Source: patient
Exam Limitations: none
Time Seen by Provider: 11/03/24 09:10
Nursing documentation reviewed up to this point in time: agreed with
History of Present Illness
History of Present Illness:
Patient presents to ED secondary to sudden onset of chest pain, which woke the patient up from sleep around 3:15 AM. Chest pain described as pressure, in the middle of his chest, associated with extreme cold sensation when he woke up. Since then
chest pressure has improved, but not completely resolved. Patient now reports sensation of feeling foggy and lightheaded. Denies shortness of breath. Denies nausea. Denies diaphoresis. Denies recent illness. Denies recent travel. Denies recent
surgery. Denies leg pain or swelling. Around 6 AM, however, patient does report brief sensation of left finger tingling sensation, which resolved after few minutes. Denies previous history of similar chest pain. Patient does have history of
atrial fibrillation, which required ablation in the past. Patient currently does not take any blood thinning medications.
Past History
<Mike Glover MD - Last Filed: 11/05/24 10:53>
Past History
ED Past Medical History: Arrthythmia (a fib s/p ablation), GERD and Other (Schatzki's ring, osteoarthritis, BPH)
ED Past Surgical History: Cardiac (ablation) and Other (Hernia repair, esophageal dilatation)
Social History
Tobacco: Non-smoker
Alcohol: Occasional
Drug: None
Personal:
Living: with family
Employment: Employed
Family History
Family History: Hypertension
Review of Systems
<Mike Glover MD - Last Filed: 11/05/24 10:53>
Review of Systems
Allergies reviewed?: Yes
All Other Systems: ROS reviewed and negative except as documented in HPI and ROS
Constitutional: Reports no symptoms
Respiratory: Reports no symptoms; Denies trouble breathing
Cardiac: Reports chest pain
ABD/GI: Reports no symptoms
Musculoskeletal: Reports no symptoms
Skin: Reports no symptoms
Neurological: Reports dizzy and headache
Phy Exam
<Mike Glover MD - Last Filed: 11/05/24 10:53>
Physical Exam
Physical Exam:
Physical Exam
General: mild distress, not acutely ill. afebrile
Head: nc/at. eomi
Neck: supple. normal range of motion.
Heart: s1/s2 regular rate and rhythm
Lungs: no acute respiratory distress. clear bilaterally. chest wall nontender to palpation
Abdomen: normal bowel sounds. not tender.
Neuro: alert and oriented x 3. no focal neurological deficits
Skin: no rash
Psychiatric: well kept. interactive and cooperative
Extremities: no edema. no calf tenderness.
Scores
<Mike Glover MD - Last Filed: 11/05/24 10:53>
Heart Score for Chest Pain Patients
STEMI patient?: No
History: Moderately Suspicious
ECG: Normal
Age: >45 - <65 years
Risk Factors: 1 or 2 Risk Factors
Troponin: </= Normal Limit
Heart Score for Chest Pain Patients: 3
Heart Score Risk: 2.5% MACE over next 6 weeks
Course
<Mike Glover MD - Last Filed: 11/05/24 10:53>
Orders/Labs/Results
Orders:
Orders
11/03/24 09:06
ECG [Electrocardiogram (*1)] Urgent
Reason for Study: Chest Pain
EKG- Treatment ONCE
11/03/24 09:32
Electrocardiogram (*1) Urgent
Reason for Study: Chest Pain
EKG- Treatment ONCE
Aspirin Chewable [Low Strength Aspirin] 324 mg PO NOW STA
11/03/24 09:33
CR Chest Portable - 1 View Urgent
Comment:
Reason For Exam: chest pain
Reason Study Needs to be Portable: Patient Unstable
11/03/24 09:39
Complete Blood Count/With Diff Urgent
Comprehensive Metabolic Panel Urgent
D-Dimer Urgent
Magnesium Urgent
NT-proBNP Urgent
Comment: ADD ON
Troponin I Urgent
11/03/24 09:50
Morphine Sulfate 2 mg IV NOW STA
11/03/24 10:55
CARDIOLOGY CONSULT Urgent
Consulting Provider: Yosef Aquino
Was physician already notified: Yes
Reason for consult: chest pain
11/03/24 10:56
Add On- LAB Urgent
Tests Added?: ProBNP
11/03/24 11:13
EKG- Treatment ONCE
11/03/24 11:52
Troponin I Urgent
11/03/24 12:00
Electrocardiogram (*1) Urgent
Reason for Study: Chest Pain
11/03/24 13:13
Echo 2D MMode Color/Doppler Urgent
Reason for Study: CP, concern for pericarditis
Abnormal Lab Results
11/03/24
09:39
RBC 4.66 L 10^6/uL
(4.70-6.10)
MCH 32.8 H pg
(27.0-31.0)
Absolute Neuts (auto) 7.5 H 10^3/uL
(1.4-6.5)
Absolute Lymphs (auto) 0.9 L 10^3/uL
(1.2-3.4)
Absolute Monos (auto) 0.9 H 10^3/uL
(0.1-0.6)
Neutrophils % 80.8 H %
(42.2-75.2)
Lymphocytes % 9.3 L %
(20.5-51.1)
D-Dimer 0.58 H ug/mlFEU
(0.00-0.50)
Chloride 109 H mmol/L
(98-107)
Glucose 109 H mg/dl
(70-99)
Alkaline Phosphatase 28 L U/L
(38-126)
11/03/24 09:39
11/03/24 09:39
Vital Signs
Initial and Last Documented VS:
Initial Vital Signs
Temp Pulse Resp BP Pulse Ox
99.1 F 107 16 111/80 94
11/03/24 09:07 11/03/24 09:07 11/03/24 09:07 11/03/24 09:07 11/03/24 09:07
Last Documented Vital Signs
Temp Pulse Resp BP Pulse Ox
99.1 F 86 23 128/78 95
11/03/24 09:07 11/03/24 15:30 11/03/24 15:30 11/03/24 11:00 11/03/24 15:30
<Carter Saha MD - Last Filed: 11/03/24 15:34>
Orders/Labs/Results
Orders:
Orders
11/03/24 09:06
ECG [Electrocardiogram (*1)] Urgent
Reason for Study: Chest Pain
EKG- Treatment ONCE
11/03/24 09:32
Electrocardiogram (*1) Urgent
Reason for Study: Chest Pain
EKG- Treatment ONCE
Aspirin Chewable [Low Strength Aspirin] 324 mg PO NOW STA
11/03/24 09:33
CR Chest Portable - 1 View Urgent
Comment:
Reason For Exam: chest pain
Reason Study Needs to be Portable: Patient Unstable
11/03/24 09:39
Complete Blood Count/With Diff Urgent
Comprehensive Metabolic Panel Urgent
D-Dimer Urgent
Magnesium Urgent
NT-proBNP Urgent
Comment: ADD ON
Troponin I Urgent
11/03/24 09:50
Morphine Sulfate 2 mg IV NOW STA
11/03/24 10:55
CARDIOLOGY CONSULT Urgent
Consulting Provider: Yosef Aquino
Was physician already notified: Yes
Reason for consult: chest pain
11/03/24 10:56
Add On- LAB Urgent
Tests Added?: ProBNP
11/03/24 11:13
EKG- Treatment ONCE
11/03/24 11:52
Troponin I Urgent
11/03/24 12:00
Electrocardiogram (*1) Urgent
Reason for Study: Chest Pain
11/03/24 13:13
Echo 2D MMode Color/Doppler Urgent
Reason for Study: CP, concern for pericarditis
Abnormal Lab Results
11/03/24
09:39
RBC 4.66 L 10^6/uL
(4.70-6.10)
MCH 32.8 H pg
(27.0-31.0)
Absolute Neuts (auto) 7.5 H 10^3/uL
(1.4-6.5)
Absolute Lymphs (auto) 0.9 L 10^3/uL
(1.2-3.4)
Absolute Monos (auto) 0.9 H 10^3/uL
(0.1-0.6)
Neutrophils % 80.8 H %
(42.2-75.2)
Lymphocytes % 9.3 L %
(20.5-51.1)
D-Dimer 0.58 H ug/mlFEU
(0.00-0.50)
Chloride 109 H mmol/L
(98-107)
Glucose 109 H mg/dl
(70-99)
Alkaline Phosphatase 28 L U/L
(38-126)
11/03/24 09:39
09/05/25 09:39
Vital Signs
Initial and Last Documented VS:
Initial Vital Signs
Temp Pulse Resp BP Pulse Ox
99.1 F 107 16 111/80 94
11/03/24 09:07 11/03/24 09:07 11/03/24 09:07 11/03/24 09:07 11/03/24 09:07
Last Documented Vital Signs
Temp Pulse Resp BP Pulse Ox
99.1 F 86 23 128/78 95
11/03/24 09:07 11/03/24 15:30 11/03/24 15:30 11/03/24 11:00 11/03/24 15:30
<iMke Glvoer MD - Last Filed: 11/05/24 10:53>
MDM/Problems Addressed
MDM/Problems Addressed:
Tadalafil taken at 8:30pm last night. Due to long 1/2 life, will withhold nitroglycerin treatment at this time. Instead will administer morphine for CP and reassess.
Repeat EKG with any acute ST changes. Pt remains hemodynamically stable.
After morphine, pt does report improvement in CP. D-dimer noted, when age adjusted, within normal limits, and without any other obvious PE risk factors. As such, will withhold CT PE study at this time.
Initial trop negative. Will repeat trop. Awaiting evaluation by cardiology
Patient evaluated in ED by Dr. MARIE Aquino. Does not feel the patient's presentation is concerning for ACS, but more likely possible pericarditis. Does however recommend obtaining echocardiogram prior to discharge, with plan to obtain stress test as
an outpatient, if echo does not reveal any acute abnormal findings..
<Mike Glover MD - Last Filed: 11/05/24 10:53>
*Pulse Oximetry
SaO2: 96
Oxygen Mode of Delivery: Room air
Patient hypoxic: no
*EKG
Interpreted by ED Provider?: Yes
EKG Intrepretation Date: 11/03/24
Heart Rate: 102
Rate: tachycardiac
Rhythm: sinus
[place]: left axis deviation
Interval: normal interval
*Critical Care Note
Total Time (30-74mins, 75-104mins- exclusive of procedures): Not Applicable
<Carter Saha MD - Last Filed: 11/03/24 15:34>
Update Note
Update Note:
UPDATE (Carter Saha MD)
I have seen and evaluated the patient after signout and reviewed all labs and imaging.
Focused HPI: 59-year-old male with history as noted presenting with atypical chest pain.
Physical exam: Awake and alert not in distress. Vital signs are normal on my assessment.
Medical Decision Makin-year-old male presenting with atypical chest pain. Labs were sent off including CBC and CMP which were unremarkable. Troponins undetectable x 2. D-dimer age-adjusted negative. Chest x-ray no acute disease. He was
seen in consultation with cardiology. Echocardiogram ordered and pending. If no significant abnormalities plan is for discharge with outpatient stress test and a trial of colchicine for suspected pericarditis.
Discussed with cardiology PA�echocardiogram reportedly no acute abnormalities. Recommending discharge, arranged outpatient follow-up. Provided information for stress test. Prescription for colchicine. All questions answered.
ED Attending Note
<Mike Glover MD - Last Filed: 11/05/24 10:53>
-
Portions of this chart may have been created with voice recognition software.� Occasional wrong word or��sound alike� substitutions may have occurred due to the inherent limitations of voice recognition software.
Discharge Plan
Departure
Patient Disposition: Home (Routine Discharge)
Date of Disposition: 11/03/24
Time of Disposition: 15:25
Patient with high blood pressure during this ER visit?: No
Discharge Problem:
Chest pain
Instructions: Chest Pain DCA Follow Up
Prescriptions:
New
colchicine 0.6 mg tablet
0.6 mg PO DAILY Qty: 30 0RF
No Action
therapeutic multivitamin Tablet
1 tab PO DAILY
doxazosin 4 mg Tablet
4 mg PO HS
finasteride 5 mg Tablet
5 mg PO HS
tadalafil 5 mg Tablet
5 mg PO HS
testosterone 20.25 mg/1.25 gram (1.62 %) Gel In Metered-Dose Pump
2 pump TOPICAL DAILY
alprazolam [Xanax] 1 mg Tablet
1 mg PO BID
hydroxyzine HCl 25 mg Tablet
25 mg PO TIDPRN PRN (Reason: HIGH BLOOD PRESSURE)
omega 8-rgs-eim-fish oil [Fish Oil] 1,000 (120-180) mg Capsule
1 cap PO DAILY
pantoprazole [Protonix] 40 mg tablet,delayed release (DR/EC)
40 mg PO DAILY
Referrals:
Carlos Bailon DO [Family Provider]
Kika Vaughan CRNP [Specified Professional Personl, Cardiology] - 12/04/24 11:00 am
Referral Note: You have a cardiology follow-up appointment at the [place] office with Dr. Brooks's nurse practitioner, Kika. Please call with questions
Activity Restrictions/Additional Instructions:
Thank you for visiting the Emergency Department at [facility].
1. Please schedule a follow up appointment as directed. Call first thing tomorrow morning to make an appointment.
2. If indicated, please take your medications as instructed and indicated on discharge paperwork.
3. If any of your symptoms do not improve, or persist, or become more severe within 6-12 hours, please return to the emergency department for further care.
4. Please return to the emergency department if you develop a headache, neck pain/stiffness, fever greater than 100.4F, chest pain, shortness of breath, persistent nausea, vomiting, slurred speech, difficulty walking, numbness/tingling, weakness,
signs of infection or any other symptoms that are worrisome to you.
Please call [phone] if you have any questions.
Interventions
Interventions:
*Risk Screen - Suicide Last Done: 11/03/24 16:29
*General Assessment Last Done: 11/03/24 16:29
*Neglect/Abuse Screening Last Done: 11/03/24 16:29
*ED- Fall Risk Assessment Last Done: 11/03/24 11:51
*ED COVID-19 Vaccine History Last Done: 11/03/24 11:51
*Nursing Disposition Last Done: 11/03/24 16:29
ED- Cardiac Assessment Last Done: 11/03/24 11:50
Discharge Date and Time
Discharge Date/Time: 11/03/24 16:30
Print Language: TAJIK
[2024-11-03 09:52] LABS: Hematocrit 42.8 % (39.0-52.0); Hemoglobin 15.3 g/dL (13.0-18.0); Mean Corp Hgb Conc. 35.7 g/dL (33.0-37.0); Mean Corpuscular Volume 91.8 fL (80.0-94.0); Nucleated Red Blood Cells % 0 % (-); Platelet Count 209 10^3/uL (130-400); Red Cell Dist. Width 12.1 % (11.5-14.5)
[2024-11-03] MEDS: MORPHINE SULFATE 2 MG IV (09:59)
[2024-11-03 10:00] VITALS: BP 131/80
[2024-11-03 10:09] LABS: D-Dimer 0.58 ug/mlFEU (0.00-0.50)
[2024-11-03 10:11] LABS: Troponin I < 0.012 ng/ml
[2024-11-03 10:26] LABS: ALT (SGPT) 33 U/L (0-50); AST (SGOT) 25 U/L (17-59); Albumin 4.4 g/dl (3.5-5.0); Alkaline Phosphatase 28 U/L (38-126); Blood Urea Nitrogen 15 mg/dl (9-20); Calcium 10.0 mg/dl (8.4-10.2); Carbon Dioxide 22 mmol/L (22-30); Chloride 109 mmol/L (98-107); Glucose 109 mg/dl (70-99); Magnesium 2.0 mg/dl (1.6-2.3); Potassium 4.2 mmol/L (3.5-5.1); Sodium 138 mmol/L (135-145); Total Protein 7.1 g/dl (6.3-8.2); eGFR > 60.00
[2024-11-03 11:00] VITALS: BP 128/78
--- NOTE | 2024-11-03 12:02 | CON.CAR ---
Addendum entered and electronically signed by Yosef Aquino MD 11/03/24 18:38:
59-year-old man who presented to the emergency department today with chest discomfort. Recently started on hydroxyzine. He woke at 3 AM after taking hydroxyzine last night with substernal discomfort, some improvement with simethicone. He had
paresthesias of the left finger and lightheadedness. In the emergency department he received morphine. Typically exercises without symptoms. Substernal discomfort worse with deep breath, not clearly different supine or upright. No significant
dyspnea.
PMH: PAF, history of ablation in 2017, anxiety, BPH, GERD
Rest of history per M Xavi below, reviewed in detail and agree unless otherwise specified
128/78, pulse 94, respiratory rate 21, afebrile, head neck exam unremarkable, lungs are clear regular rate and rhythm, no obvious murmur or rubs, abdomen benign, extremities without clubbing cyanosis or edema.
Chest x-ray no active disease, possibly small amount of atelectasis on the right
ECG sinus rhythm, left axis deviation
Normal CBC, though polys are increased
D-dimer is 0.58 BUN and creatinine are 15 and 0.8, troponin is undetectable and proBNP is 40
Impression:
Chest pain, suspect non ACS
Possible pericarditis?
History of GERD
PAF status post ablation in 2017
Anxiety
GERD
Plan:
He presents with symptoms of discomfort that are not exertional, and with undetectable troponin. His EKG is without acute changes.
Symptoms are pleuritic in nature raising the possibility of pericarditis, though diagnosis currently based on symptoms alone. An echocardiogram is unremarkable.
He feels that current symptoms are not related to reflux. It is conceivable that hydroxyzine is a potential contributor. It has been recommended that this be discontinued.
Discussed D-dimer with Dr. Glover, CT with pulmonary embolism protocol could be considered but is very low yield. Defer final decision regarding this to emergency department but reasonable to hold off.
Patient can be released with outpatient stress test and subsequent follow-up to be arranged. Empiric trial of colchicine would be reasonable to consider and patient is agreeable.
Okay for discharge with outpatient follow-up.
Original Note:
Consultation
Consultation Request
Date/Time Consultation Performed: 11/03/24
Requesting Provider: Dr. Glover
Performing Provider: Paola Hurley PA-C for Dr. MARIE Aquino
Reason for Consultation: CP
Medical History
-
Chief Complaint: CP
History of Present Illness:
Patient is a 59-year-old male with past medical history of atrial fibrillation status post ablation in 2017 without known recurrence, anxiety, BPH, GERD, multiple knee surgeries who presents to [facility] for evaluation of chest pain. He
reports work has been stressful recently. He had seen his primary care physician due to anxiety and was prescribed hydroxyzine. He had taken a dose several weeks ago however got significant dry mouth with it, and had not taken additional doses
until last evening around 5:30 PM. He states then around 3:15 AM he woke up with central chest discomfort. He took a dose of simethicone without significant improvement. He was then able to eventually fall back asleep. Around 6:30 AM he had
continued pain and took an additional dose of simethicone with some improvement. Around that time he also experienced some transient tingling in his left fingers as well as associated lightheadedness. He denies recent fevers or chills, however did
feel cold. He also denies recent illnesses. He was given 2 mg of IV morphine on arrival to the ER with improvement in his pain. He reports it being around a 1-2 out of 10 compared to a 6 out of 10 before. He states yesterday he was in his normal
state of health. He reports most days of the week he does 20 minutes on the elliptical and has never noted chest discomfort, shortness of breath, or limitations in his activity. Cardiology consulted for evaluation. Initial troponin negative
PMH:
PAF s/p ablation 2016
anxiety
BPH
GERD
Past Medical History
Past Medical History: Other (in HPI)
Social History
Tobacco: Non-Smoker
Alcohol: Occasional
Personal:
Living: With Family
Employment: Employed
Family History
Family History: CAD and Cancer
Allergies / Home Medications
Allergy/AdvReac Type Severity Reaction Status Date / Time
rivaroxaban (From Xarelto) Allergy Rash Verified 05/11/23 07:31
�Medication �Instructions �Recorded �Confirmed �Type
doxazosin 4 mg tablet 4 mg PO HS Urinary Issue/BP 02/09/24 11/03/24 History
finasteride 5 mg tablet 5 mg PO HS Urinary Issue 02/09/24 11/03/24 History
tadalafil 5 mg tablet 5 mg PO HS Urinary Issue 02/09/24 11/03/24 History
testosterone 2 pump topical DAILY Hormonal Agent 02/09/24 11/03/24 History
therapeutic multivitamin 1 tab PO DAILY Supplement 02/09/24 11/03/24 History
alprazolam 1 mg tablet (Xanax) 1 mg PO BID 11/03/24 11/03/24 History
hydroxyzine HCl 25 mg tablet 25 mg PO TIDPRN PRN HIGH BLOOD 11/03/24 11/03/24 History
PRESSURE
omega 5-kgf-aee-fish oil 1,000 mg 1 cap PO DAILY 11/03/24 11/03/24 History
(120 mg-180 mg) capsule (Fish Oil)
pantoprazole 40 mg tablet,delayed 40 mg PO DAILY 11/03/24 11/03/24 History
release (Protonix)
Review of Systems
-
History Source: Patient
All other systems: Negative unless noted
Physical Exam
Vital Signs
Temp Pulse Resp BP Pulse Ox
99.1 F 94 21 128/78 96
11/03/24 09:07 11/03/24 11:45 11/03/24 11:45 11/03/24 11:00 11/03/24 11:45
Lab Results
11/03/24 09:39
11/03/24 09:39
Troponin I < 0.012 ng/ml 11/03/24 09:39
Ick-J-Kpkxyxabbdv Pept 39.7 pg/ml 11/03/24 09:39
Physical Exam
General: No Apparent Distress and Comfortable
HEENT: Normocephalic, Anicteric and Moist Mucous Membranes
Respiratory: Clear and Non Labored Respirations
Cardiac: S1/S2 and Regular Rhythm
GI: Soft, Non Tender, Non Distended and Normal Bowel Sounds
Musculoskeletal: No Clubbing, No Cyanosis and Edema (trace of B/L LE)
Skin: Warm and Dry
Neuro: AO x 3
Impression / Plan
-
Primary Telephone Exchange Operator: Dr. Brooks
Assessment:
Presentation with CP
Negative troponin x1
PAF s/p ablation 2016
anxiety
BPH
GERD
Echo 05/2016: EF 55 to 60%, mild MR, mild AR, mild TR
Exercise nuclear stress test 06/08/2016: Normal perfusion imaging, EF 58%, low risk study
Plan:
- Patient presented with chest discomfort which woke him from sleep this morning. Denies any recent exertional symptoms
- Initial troponin negative
- Serial EKGs reviewed, sinus rhythm without acute ST changes noted
- Chest x-ray with mild vascular congestion. He is noted to have some mild lower extremity edema bilaterally, however proBNP 39.7.
- Await second troponin
- If also remains negative, would consider for outpatient stress testing
- Last echo and stress test with results as above from 2017
- Would stop using hydroxyzine, unclear if adverse reaction
- Will arrange outpatient cardiac follow-up
Data Reviewed
-
EKG: Tracing Personally Visualized and interpreted
Radiology: Report Reviewed by me
Medical Tests (Nuc Med, Echo etc): Report Reviewed by me
Labs: Labs Reviewed by me
Old Records: Reviewed
[2024-11-03 12:25] LABS: Troponin I < 0.012 ng/ml
== END 2024-11-03 16:30 | disposition home or self-care (01) ==
LOC: EMR 09:00
PROVIDERS: CONSULT PHYSICIAN Internal Medicine Cardiovascular Disease; EMERGENCY PHYSICIAN Emergency Medicine; FAMILY PHYSICIAN Family Medicine
DX: R07.89 Other chest pain (principal); I48.0 Paroxysmal atrial fibrillation; N40.0 Benign prostatic hyperplasia without lower urinary tract symptoms; K21.9 Gastro-esophageal reflux disease without esophagitis
CPT/HCPCS: 99285; 96374; 71045; 80053; 83735; 83880; 84484; 85025; 85379; 93005; 93306

== ENCOUNTER → 2024-11-09 12:15 | Outpatient (REF) | payer OTHER, SELFPAY | LOC: HWRCS 12:15 | PROVIDERS: ATTENDING PHYSICIAN Internal Medicine Cardiovascular Disease; FAMILY PHYSICIAN Family Medicine | DX: R07.9 Chest pain, unspecified (principal); R20.0 Anesthesia of skin; R42 Dizziness and giddiness | CPT/HCPCS: 78452; 93017; A9500; J2785 ==

== ENCOUNTER 2024-11-15 09:32 | Day surgery (SDC) | payer OTHER, SELFPAY | END 2024-11-15 12:00 | disposition home or self-care (01) | LOC: CATH 09:32 | PROVIDERS: ATTENDING PHYSICIAN Internal Medicine Cardiovascular Disease; FAMILY PHYSICIAN Family Medicine; OTHER PHYSICIAN Internal Medicine Cardiovascular Disease | DX: I48.0 Paroxysmal atrial fibrillation (principal); I08.0 Rheumatic disorders of both mitral and aortic valves; Z79.02 Long term (current) use of antithrombotics/antiplatelets; K21.9 Gastro-esophageal reflux disease without esophagitis; I10 Essential (primary) hypertension | CPT/HCPCS: 93312; 93320; 93325; 92960; 93005 ==

== ENCOUNTER 2024-12-12 08:59 | Emergency (ER) | payer OTHER, SELFPAY ==
[2024-12-12] VITALS (16 sets, daily range): BP systolic 86–126; BP diastolic 59–90; BMI 28.5
--- NOTE | 2024-12-12 09:56 | ED.GENMED ---
ED Provider Triage
<Edwin Frey MD, Resident - Last Filed: 12/12/24 13:45>
-
Patient seen by provider in Triage?: Seen in Triage
History of Present Illness
<Edwin Frey MD, Resident - Last Filed: 12/12/24 13:45>
General
Chief Complaint: Heart Rate Problem
Source: patient
Exam Limitations: none
Time Seen by Provider: 12/12/24 09:27
History of Present Illness
History of Present Illness:
59-year-old male who presents with constant palpitations that he assumes are due to A-fib since Wednesday 2 AM. He went to [facility] to get his heart rate read using a monitor and he had 3 successive readings which were 87, 84 and 83. He states that he is
not ' on his game'. Diagnosed with Afib in 2017. The palpitations are not associated with fever, cough, headache, weight loss, visual changes, shortness of breath, dizziness, syncope, abdominal pain, nausea, vomiting, focal neurological deficits.
Palpitations have been constant and on Wednesday he called his Dr. Solo's office who is his security alarm installer and they told him that they will schedule him for a cardioversion but if he does not feel well then he can come to the emergency department and
get cardioverted here. Patient takes metoprolol and Pradaxa for his atrial fibrillation. He has not missed any doses of Pradaxa. No previous history of a myocardial infarction or stroke. Patient was an ex-smoker who quit 10 years ago, and had
3-4 beers on Wednesday.
Past History
<Edwin Frey MD, Resident - Last Filed: 12/12/24 13:45>
Past History
ED Past Medical History: Arrthythmia (a fib s/p ablation), GERD and Other (Schatzki's ring, osteoarthritis, BPH)
ED Past Surgical History: Cardiac (ablation) and Other (Hernia repair, esophageal dilatation)
Social History
Tobacco: Non-smoker
Alcohol: Occasional
Drug: None
Personal:
Living: with family
Employment: Employed
Family History
Family History: Hypertension
Review of Systems
<Edwin Frey MD, Resident - Last Filed: 12/12/24 13:45>
Review of Systems
All Other Systems: ROS reviewed and negative except as documented in HPI and ROS
Phy Exam
<Edwin Frey MD, Resident - Last Filed: 12/12/24 13:45>
General Physical Exam
General Presentation: well appearing and mild distress
General Skin: warm
General Habitus: normal
General Mental: alert
Cardiovascular Exam
Cardiovascular Exam: no edema, no JVD, no murmur, normal peripheral pulses and irregularly irregular
Gastrointestinal Exam
Gastrointestinal Exam: normal bowel sounds, non tender, soft and non distended
Neurological Exam
Neurological Exam: alert and oriented x3
Musculoskeletal Exam
Musculoskeletal Exam: full ROM
Course
<Edwin Frey MD, Resident - Last Filed: 12/12/24 13:45>
Orders/Labs/Results
Orders:
Orders
12/12/24
Electrocardiogram (*1) Stat
Other Reason for Exam: RHYTHM CHANGE
Comment: DONE
12/12/24 09:04
ECG [Electrocardiogram (*1)] Urgent
Reason for Study: Atrial Fibrillation
12/12/24 09:05
EKG- Treatment ONCE
12/12/24 10:25
Complete Blood Count/With Diff Urgent
Comprehensive Metabolic Panel Urgent
12/12/24 10:48
Propofol [Diprivan] 20 ml .ROUTE .STK-MED
Abnormal Lab Results
12/12/24
10:25
MCH 32.5 H pg
(27.0-31.0)
MPV 10.6 H fL
(7.4-10.4)
Chloride 110 H mmol/L
(98-107)
Glucose 111 H mg/dl
(70-99)
Alkaline Phosphatase 27 L U/L
(38-126)
12/12/24 10:25
12/12/24 10:25
Vital Signs
Initial and Last Documented VS:
Initial Vital Signs
Temp Pulse Resp BP Pulse Ox
98.1 F 67 18 121/70 96
12/12/24 09:00 12/12/24 09:00 12/12/24 09:00 12/12/24 09:00 12/12/24 09:00
Last Documented Vital Signs
Temp Pulse Resp BP Pulse Ox
97.9 F 77 16 112/77 97
12/12/24 12:29 12/12/24 12:05 12/12/24 12:05 12/12/24 12:05 12/12/24 12:05
<Vicki Lawrence, DO - Last Filed: 12/12/24 11:32>
Orders/Labs/Results
Orders:
Orders
12/12/24
Electrocardiogram (*1) Stat
Other Reason for Exam: RHYTHM CHANGE
Comment: DONE
12/12/24 09:04
ECG [Electrocardiogram (*1)] Urgent
Reason for Study: Atrial Fibrillation
12/12/24 09:05
EKG- Treatment ONCE
12/12/24 10:25
Complete Blood Count/With Diff Urgent
Comprehensive Metabolic Panel Urgent
12/12/24 10:48
Propofol [Diprivan] 20 ml .ROUTE .STK-MED
Abnormal Lab Results
12/12/24
10:25
MCH 32.5 H pg
(27.0-31.0)
MPV 10.6 H fL
(7.4-10.4)
Chloride 110 H mmol/L
(98-107)
Glucose 111 H mg/dl
(70-99)
Alkaline Phosphatase 27 L U/L
(38-126)
12/12/24 10:25
12/12/24 10:25
Vital Signs
Initial and Last Documented VS:
Initial Vital Signs
Temp Pulse Resp BP Pulse Ox
98.1 F 67 18 121/70 96
12/12/24 09:00 12/12/24 09:00 12/12/24 09:00 12/12/24 09:00 12/12/24 09:00
Last Documented Vital Signs
Temp Pulse Resp BP Pulse Ox
97.9 F 77 16 112/77 97
12/12/24 12:29 12/12/24 12:05 12/12/24 12:05 12/12/24 12:05 12/12/24 12:05
Procedures
<Vicki Lawrence DO - Last Filed: 12/12/24 11:32>
Cardioversion
Indication:: Afib
Performed by:: Vicki Lawrence DO
Synchronized?: Yes
Energy Used: 200 joules
Number of attempts: 1
Successful?: Yes
Complications: none
ASA Risk Score: Class II
Any reaction or bad outcome to prior sedation/anesthesia?: No history of a reaction
Sedation level to be attained: moderate
Chart and allergies reviewed: Yes
Patient reassessed prior to sedation: Yes
Time out completed at (validating right patient & procedure): 11:20
History of difficult intubation: No
Airway free of obstruction: Yes
Patient has a gag reflex: Yes
Patient is able to open mouth: Yes
Patient has no dentures: Yes
Patient has no loose teeth: Yes
Medication administered by Provider during Moderate Sedation: IV Propofol (mg)
Total dose administered: 70
Time drug administered: 11:22
Start Time: 11:22
Stop Time: 11:35
<Edwin Frey MD, Resident - Last Filed: 12/12/24 13:45>
MDM/Problems Addressed
Differential Diagnosis Includes:
Atrial fibrillation, ACS, MO, pericarditis, musculoskeletal strain
MDM/Problems Addressed:
- EKG shows atrial fibrillation
- CBC, CMP- unremarkable
Patient successfully cardioverted and then sent home with [facility].
<Edwin Frey MD, Resident - Last Filed: 12/12/24 13:45>
*Pulse Oximetry
SaO2: 96
Oxygen Mode of Delivery: Room air
<Vicki Lawrence DO - Last Filed: 12/12/24 11:32>
*Pulse Oximetry
Patient hypoxic: no
*EKG
Interpreted by ED Provider?: Yes
EKG Intrepretation Date: 12/12/24
EKG Intrepretation Time: 10:25
Interpretation: abnormal
Comparison EKG: no changes
Heart Rate: 105
Rate: tachycardiac
Rhythm: a-fib
[place]: normal axis
QRS Pattern: normal QRS
Ischemia: no ischemia
*Critical Care Note
Total Time (30-74mins, 75-104mins- exclusive of procedures): Not Applicable
ED Attending Note
<Edwin Frey MD, Resident - Last Filed: 12/12/24 13:45>
-
Portions of this chart may have been created with voice recognition software.� Occasional wrong word or��sound alike� substitutions may have occurred due to the inherent limitations of voice recognition software.
<Vicki Lawrence DO - Last Filed: 12/12/24 11:32>
ED Attending Note
Patient seen and examined by attending physician: Yes
I performed the substantive portion of visit, reviewed & personally made and approve the management plan that is documented in note by myself or ANGELICA.: Yes
I performed a history and physical exam of patient and discussed management with resident, I reviewed resident's note and agree with documented findings and plan of care.: Yes
ED Attending Note:
59-year-old male with history of A-fib on Pradaxa presenting to the emergency department with concern of A-fib. Patient reports palpitations started 2 days ago. He felt overall well yesterday, however when he woke up this morning, felt very
fatigued with brain fog, and is since having difficulty functioning. Reports history of cardioversions in the past. He called cardiology who advised that he come to the hospital. They were going to schedule him for outpatient cardioversion,
however he notes that he cannot wait due to his present symptoms. Denies chest pain or difficulty breathing. Notes compliance with his Pradaxa. Vital signs on arrival are significant for mild tachycardia.
On exam patient is resting comfortably, no acute distress. On cardiac exam, irregularly irregular rhythm, rate controlled. EKG confirms atrial fibrillation. Otherwise hemodynamically stable, no respiratory distress, lungs clear to auscultation,
no signs of volume overload or concern for heart failure. Patient would like to be cardioverted. Will consent for procedure and make cardiology aware. Ultimate plan for synchronized cardioversion with outpatient cardiac follow-up
Discharge Plan
Departure
Patient Disposition: Home (Routine Discharge)
Date of Disposition: 12/12/24
Time of Disposition: 12:35
Patient with high blood pressure during this ER visit?: No
Discharge Problem:
Encounter for cardioversion procedure, Atrial fibrillation
Instructions: Atrial Fibrillation (DC), MODERATE SEDATION ADULT
Prescriptions:
No Action
therapeutic multivitamin Tablet
1 tab PO DAILY
doxazosin 4 mg Tablet
4 mg PO HS
finasteride 5 mg Tablet
5 mg PO HS
tadalafil 5 mg Tablet
5 mg PO HS
testosterone 20.25 mg/1.25 gram (1.62 %) Gel In Metered-Dose Pump
2 pump TOPICAL DAILY
alprazolam [Xanax] 1 mg Tablet
1 mg PO BID
hydroxyzine HCl 25 mg Tablet
25 mg PO TIDPRN PRN (Reason: HIGH BLOOD PRESSURE)
omega 3-[id number]-fish oil [Fish Oil] 1,000 (120-180) mg Capsule
1 cap PO DAILY
pantoprazole [Protonix] 40 mg tablet,delayed release (DR/EC)
40 mg PO DAILY
colchicine 0.6 mg tablet
0.6 mg PO DAILY Qty: 30 0RF
doxazosin [Cardura] 4 mg Tablet
5 mg PO DAILY
metoprolol tartrate 25 mg Tablet
25 mg PO DAILY
dabigatran etexilate [Pradaxa] 150 mg Capsule
150 mg PO BID
Referrals:
Aime Solo MD [Active, Cardiology]
Carlos Bailon DO [Family Provider]
Stand Alone Forms: Return to Work
Activity Restrictions/Additional Instructions:
You were seen in the emergency department for atrial fibrillation
You were cardioverted back to sinus rhythm. Please follow-up with your security alarm installer.
Please follow-up closely with your primary care physician.
Return to the emergency department for any worsening of your symptoms, or any development of chest pain, difficulty breathing, abdominal pain with persistent vomiting and inability to tolerate food or liquid by mouth (concern for dehydration),
weakness, headache or confusion, fever greater than 100.4, or any additional symptoms that are concerning to you.
Thank you for choosing [facility].
Interventions
Interventions:
*Risk Screen - Suicide Last Done: 12/12/24 09:00
*General Assessment Last Done: 12/12/24 09:00
*Neglect/Abuse Screening Last Done: 12/12/24 11:00
*ED- Fall Risk Assessment Last Done: 12/12/24 10:29
*ED COVID-19 Vaccine History Last Done: 12/12/24 10:29
*ED Influenza Vaccine History Last Done: 12/12/24 10:29
*Nursing Disposition Last Done: 12/12/24 12:58
ED- Cardiac Assessment Last Done: 12/12/24 10:29
ED- Pulmonary Assessment Last Done: 12/12/24 11:00
Discharge Date and Time
Discharge Date/Time: 12/12/24 12:59
Print Language: [email or web address]
[2024-12-12 10:34] LABS: Hematocrit 44.2 % (39.0-52.0); Hemoglobin 15.4 g/dL (13.0-18.0); Mean Corp Hgb Conc. 34.8 g/dL (33.0-37.0); Mean Corpuscular Volume 93.2 fL (80.0-94.0); Nucleated Red Blood Cells % 0 % (-); Platelet Count 210 10^3/uL (130-400); Red Cell Dist. Width 12.3 % (11.5-14.5)
[2024-12-12 10:54] LABS: ALT (SGPT) 23 U/L (0-50); AST (SGOT) 25 U/L (17-59); Albumin 4.0 g/dl (3.5-5.0); Alkaline Phosphatase 27 U/L (38-126); Blood Urea Nitrogen 15 mg/dl (9-20); Calcium 9.3 mg/dl (8.4-10.2); Carbon Dioxide 25 mmol/L (22-30); Chloride 110 mmol/L (98-107); Estimated Creatinine Clearance 86 ml/min; Glucose 111 mg/dl (70-99); Potassium 4.4 mmol/L (3.5-5.1); Sodium 139 mmol/L (135-145); Total Protein 6.4 g/dl (6.3-8.2); eGFR > 60.00
== END 2024-12-12 12:59 | disposition home or self-care (01) ==
LOC: EMR 08:59
PROVIDERS: EMERGENCY PHYSICIAN Student in an Organized Health Care Education/Training Program; FAMILY PHYSICIAN Family Medicine
DX: I48.91 Unspecified atrial fibrillation (principal); K21.9 Gastro-esophageal reflux disease without esophagitis; N40.0 Benign prostatic hyperplasia without lower urinary tract symptoms; M19.90 Unspecified osteoarthritis, unspecified site; Z79.01 Long term (current) use of anticoagulants; Z87.891 Personal history of nicotine dependence; Z82.49 Family history of ischemic heart disease and other diseases of the circulatory system
CPT/HCPCS: 99285; 92960; 80053; 85025; 93005